=== PATIENT | female | born 1995 | race Hispanic/Latino ===

== ENCOUNTER 2017-10-09 20:29 | Emergency (ER) | payer BC ==
[2017-10-09 20:41] VITALS: TEMP 98.4
--- NOTE | 2017-10-09 20:59 | ED PDOC ---
Upper Extremity Pain/Injury Time Seen by Provider: 10/09/17 20:43 Chief Complaint (Nursing): Finger,Hand,&Wrist Chief Complaint (Provider): left wrist injury History Per: Patient History/Exam Limitations: no limitations Onset/Duration Of Symptoms: Hrs (x 1) Current Symptoms Are (Timing): Still Present Additional Complaint(s): 22-year-old right-hand dominant female presents with pain and swelling to left wrist. Patient states that she was playing soccer as a goalie and tried to stop a ball and hyperextended her wrist. Patient now has severe pain and inability to move wrist. Patient came right to ED after injury. PMD: Dr. Short in [place], [place] Past Medical History Reviewed: Historical Data, Nursing Documentation, Vital Signs Vital Signs: Last Vital Signs Temp 98.4 F 10/09/17 20:39 Pulse 119 H 10/09/17 20:39 Resp 16 10/09/17 20:39 BP 121/80 10/09/17 20:39 Pulse Ox 100 10/09/17 20:39 - Medical History PMH: No Chronic Diseases - Surgical History Surgical History: No Surg Hx - Family History Family History: States: No Known Family Hx - Living Arrangements Living Arrangements: With Family - Social History Current smoker - smoking cessation education provided: No Alcohol: Occasional Drugs: Denies - Home Medications Home Medications: Ambulatory Orders Medication Instructions Recorded Ibuprofen [Motrin Tab] 800 mg PO Q8 PRN #20 tab 10/09/17 oxyCODONE/Acetaminophen [Percocet 1 ea PO Q6H PRN #15 tab 10/09/17 5/325 mg Tab] - Allergies Allergies/Adverse Reactions: Allergies Allergy/AdvReac Type Severity Reaction Status Date / Time No Known Allergies Allergy Verified 10/09/17 20:39 Review of Systems ROS Statement: Except As Marked, All Systems Reviewed And Found Negative Musculoskeletal: Positive for: Other (left wrist pain) Physical Exam - Reviewed Nursing Documentation Reviewed: Yes Vital Signs Reviewed: Yes - Physical Exam Appears: Positive for: Well, Non-toxic, No Acute Distress Skin: Positive for: Normal Color. Negative for: Rash Eye Exam: Positive for: Normal appearance Neck: Positive for: Normal Cardiovascular/Chest: Positive for: Regular Rate, Rhythm Respiratory: Positive for: Normal Breath Sounds Extremity: Positive for: Other ((+) swelling and tenderness to left wrist with decreased ROM , (+) snuff box tenderness, ? deformity noted) Neurologic/Psych: Positive for: Alert, Oriented - Laboratory Results Urine POC: Negative - ECG O2 Sat by Pulse Oximetry: 100 (RA) Pulse Ox Interpretation: Normal - Other Rad Left wrist x-ray X-Ray: Interpreted by Me, Viewed By Me X-Ray Interpretation: displaced distal radius fracture Medical Decision Making Medical Decision Makin-year-old female with left wrist injury Plan: - Motrin Tab 600 mg PO - Tylenol 325 mg Tab - Left Forearm X-Ray - Left Wrist X-Ray Patient aware of x-ray results. All questions answered. Sugar tong splint was applied. Call placed to Dr. Sidhu, ortho awake overnight monitor who reviewed x-rays and states surgical repair is indicated. Patient states she wants to speak with her PMD and parents about which ortho to follow up with. She also wants to make sure that she finds a specialist that is in network with her insurance. She was given x-ray copies of disc and was advised to follow up [facility]. Patient given tablet of Percocet prior to discharge along with prescription for same. Patient was counseled on dangers of taking opiate pain medications including risk of dependence and tolerance. She was advised to take only for severe pain, otherwise to take NSAIDs. Scribe Attestation: Documented by Jermain Tavarez, acting as a scribe for Carmela Posadas PA-C. Provider Scribe Attestation: All medical record entries made by the Scribe were at my direction and personally dictated by me. I have reviewed the chart and agree that the record accurately reflects my personal performance of the history, physical exam, medical decision making, and the department course for this patient. I have also personally directed, reviewed, and agree with the discharge instructions and disposition. Procedures - Splinting Location: left wrist Hand-Made Type: fiberglass (Sugar tong splint applied to left wrist, secured with Justino) Pre-Proc Neuro Vasc Exam: normal Post-Proc Neuro Vasc Exam: normal Disposition - Clinical Impression Clinical Impression: Wrist fracture, left Counseled Patient/Family Regarding: Studies Performed, Diagnosis, Need For Followup, Rx Given - Disposition Referrals: Gemma Short DO [Primary Care Provider] - Sunil Sidhu III, MD [Staff Provider] - Disposition: Routine/Home Disposition Time: 23:09 Condition: STABLE Additional Instructions: Keep splint on at all times, do not remove splinter get splint wet. Ice and elevate left arm as much as possible. Take prescription meds as directed as needed for pain. Follow-up with orthopedist as soon as possible. Prescriptions: Ibuprofen [Motrin Tab] 800 mg PO Q8 PRN #20 tab PRN Reason: Pain, Moderate (4-7) oxyCODONE/Acetaminophen [Percocet 5/325 mg Tab] 1 ea PO Q6H PRN #15 tab PRN Reason: Pain, Severe (8-10) Instructions: Wrist Fracture (DC) Forms: [employer] ([place])
[2017-10-09 22:23] VITALS: BP 131/74; PULSE 99; RESP 18
[2017-10-09] MEDS ORDERED: Oxycodone/Acetaminophen 5/325 mg Tab PO STA (22:41)
[2017-10-09 23:04] VITALS: O2SAT 100
--- NOTE | 2017-10-10 12:09 | RAD ---
Date of service: 10/09/2017 PROCEDURE: Left Wrist Radiographs. HISTORY: trauma COMPARISON: None. FINDINGS: BONES: Comminuted distal radial metaphyseal fracture with trace volar and ulnar sided apical angulation deformity. No radiocarpal intraarticular extension. The fracture does point towards under closely approximates the radial ulnar articulation JOINTS: . No dislocation. SOFT TISSUES: Soft tissue swelling around the fracture OTHER FINDINGS: None. IMPRESSION: Comminuted distal radial metaphyseal fracture with trace volar and ulnar sided apical angulation deformity. No radiocarpal intraarticular extension. The fracture does point towards under closely approximates the radial ulnar articulation Comments: Findings called in to the GABBY Mulligan in the ER on 10/10/2017 at 12:06 p.m.
--- NOTE | 2017-10-10 12:10 | RAD ---
Date of service: 10/09/2017 PROCEDURE: Radiographs of the Left Forearm HISTORY: trauma COMPARISON: None available. TECHNIQUE: Frontal and lateral views obtained. FINDINGS: BONES: Comminuted distal radial metaphyseal fracture with trace volar and ulnar sided apical angulation deformity. No radiocarpal intraarticular extension. The fracture does point towards under closely approximates the radial ulnar articulation JOINT SPACES: Unremarkable. OTHER FINDINGS: None. IMPRESSION: Comminuted distal radial metaphyseal fracture with trace volar and ulnar sided apical angulation deformity. No radiocarpal intraarticular extension. The fracture does point towards under closely approximates the radial ulnar articulation Findings called in to the GABBY Riddle in the ER on 10/10/2017 at 12:06 p.m.
== END 2017-10-09 23:18 | disposition home or self-care (01) ==
LOC: H.ER 20:29
DX: S52.592A Other fractures of lower end of left radius, initial encounter for closed fracture (principal); S52.692A Other fracture of lower end of left ulna, initial encounter for closed fracture; W21.02XA Struck by soccer ball, initial encounter; Y93.66 Activity, soccer